=== PATIENT | female | born 1980 | race Caucasian/White ===

== ENCOUNTER 2023-09-24 21:32 | Emergency (ER) | payer MEDICAID, OTHER ==
[~2023-09-24] VITALS: Ht 160 cm; Wt 58.7 kg
[~2023-09-24 21:32] MED LIST: ALBU-118 IH; BUPR100T3 PO; FLUT12AE6 INH; HYDR-5071 PO
[2023-09-24 21:35] VITALS: BP 124/83; PULSE 97; RESP 26; TEMP 98.1; O2SAT 96
[2023-09-24] MEDS: ALBUTEROL 0.083% 2.5 MG/3 ML NEBU INH ONE (22:01)
[2023-09-24 22:07] VITALS: PULSE 82; RESP 28; O2SAT 96
[2023-09-24] MEDS: predniSONE 20 MG TAB PO ONE (22:19)
== END 2023-09-24 22:21 | disposition left against medical advice (07) ==
LOC: MED 21:32
DX: J45.901 Unspecified asthma with (acute) exacerbation (principal); F15.10 Other stimulant abuse, uncomplicated; Z79.1 Long term (current) use of non-steroidal anti-inflammatories (NSAID); Z79.899 Other long term (current) drug therapy
CPT/HCPCS: 94640; 99283; J7512; J7613